=== PATIENT | female | born 1950 | race Caucasian/White ===

== ENCOUNTER 2024-01-10 12:21 | Outpatient (CLI) | payer MEDICARE, OTHER | END 2024-01-10 23:59 | disposition home or self-care (01) | LOC: MRI02 12:21 | PROVIDERS: ATTEND Pediatrics Sports Medicine | DX: M47.817 Spondylosis without myelopathy or radiculopathy, lumbosacral region (principal); M51.370 Other intervertebral disc degeneration, lumbosacral region with discogenic back pain only; M46.1 Sacroiliitis, not elsewhere classified; M43.16 Spondylolisthesis, lumbar region; M48.07 Spinal stenosis, lumbosacral region | CPT/HCPCS: 72148 ==

== ENCOUNTER 2024-08-22 08:52 | Day surgery (SDC) | payer MEDICARE, OTHER ==
[~2024-08-22] VITALS: Ht 157.5 cm; Wt 81.8 kg
[~2024-08-22 08:52] MED LIST: AZIL1TAB2 PO
[2024-08-22 09:26] VITALS: BP 147/75; PULSE 82; RESP 16
[2024-08-22] MEDS ORDERED: fentaNYL/PF 50MCG/1 ML 2ML syringe ONE (10:46)
[2024-08-22] MEDS ORDERED: midazolam 1 mg/ML 2ml injection ONE (10:47)
[2024-08-22] MEDS ORDERED: propofol inj 20 ML IV ONE (10:55)
[2024-08-22 11:00] VITALS: BP 93/43; PULSE 65; RESP 12; O2SAT 93
[2024-08-22 11:10] VITALS: BP 101/48; PULSE 64; RESP 13; O2SAT 94
[2024-08-22 11:20] VITALS: BP 105/45; PULSE 60; RESP 14; O2SAT 95
[2024-08-22 11:30] VITALS: BP 108/49; PULSE 61; RESP 14; O2SAT 94
== END 2024-08-22 11:44 | disposition home or self-care (01) ==
LOC: GI LAB 08:52
PROVIDERS: ATTEND Internal Medicine Gastroenterology
DX: R13.10 Dysphagia, unspecified (principal); K31.89 Other diseases of stomach and duodenum; I10 Essential (primary) hypertension; Z91.040 Latex allergy status
CPT/HCPCS: 43239; 88305; J2250; J2704; J3010; J7030; Z7512

== ENCOUNTER 2025-01-29 09:51 | Outpatient (CLI) | payer MEDICARE, OTHER ==
--- NOTE | 2025-01-29 11:17 | RADIOLOGY REPORT ---
EXAM: MR MRI LUMBAR SPINE CLINICAL HISTORY: OTHER INTVRT DISC DEGEN, LUM RGN WITH DISCOG BACK PAIN ONLY COMPARISON: None available at the time of dictation. Technique: MRI of the lumbar spine was performed without contrast. Findings: Vertebral body height is maintained. Grade 1 anterolisthesis of L4 on L5 and L5 on S1. Mild degenerate endplate changes in the lower lumbar spine. The conus medullaris is normal in position and signal intensity. L1-L2: Facet arthropathy. No significant spinal canal or foraminal stenosis. L2-L3: Disc bulge with facet arthropathy. No significant spinal canal or foraminal stenosis. L3-L4: Disc bulge with facet arthropathy and ligamentum flavum thickening. No significant spinal canal or foraminal stenosis. L4-L5: Disc bulge with facet arthropathy and ligamentum flavum thickening. Moderate amount of effusion in the facet joints. Mild right and moderate left foraminal stenosis. Severe spinal canal narrowing. L5-S1: Disc bulge with facet arthropathy. Mild bilateral foraminal stenosis. No significant spinal canal narrowing. No mass is identified within the lumbar spinal canal or paravertebral soft tissues. IMPRESSION: Multilevel degenerative changes of the lumbar spine as described above. Findings are most pronounced at L4-L5 where there is severe spinal canal narrowing and moderate left foraminal stenosis.
--- NOTE | 2025-01-29 11:42 | RADIOLOGY REPORT ---
CLINICAL INDICATION: pain; LUMBAR DISC DEGENERATION TECHNIQUE: 1 radiographic views of the pelvis and 2 views of the bilateral hips were obtained. Comparison: None FINDINGS/IMPRESSION: There is no evidence of acute fracture or dislocation. 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
== END 2025-01-29 23:59 | disposition home or self-care (01) ==
LOC: MRI02 09:51
PROVIDERS: ATTEND Specialist
DX: M47.817 Spondylosis without myelopathy or radiculopathy, lumbosacral region (principal); M51.360 Other intervertebral disc degeneration, lumbar region with discogenic back pain only; M16.0 Bilateral primary osteoarthritis of hip; M48.07 Spinal stenosis, lumbosacral region; M43.17 Spondylolisthesis, lumbosacral region; M25.551 Pain in right hip
CPT/HCPCS: 72148; 73521